=== PATIENT | male | born 1945 | race Caucasian/White ===

== ENCOUNTER → 2018-04-17 | Day surgery (SDC) | payer MEDICARE, BC ==
--- NOTE | 2018-04-17 12:35 | RADIOLOGY REPORT (SQ) ---
EXAM DESCRIPTION: ARTHRO SHOULDER; FLUORO/NEEDLE PLACEMENT COMPLETED DATE/TIME: 04/17/2018 12:21 pm REASON FOR STUDY: UNSPECIFIED FX OF UPPER END OF LEFT HUMERUS, SUB ENCOUNTER S42.202D UNSP FX UPPER END OF L HUMERUS, SUBS FOR FX W ROUTN COMPARISON: None. FLUOROSCOPY TIME: 30 seconds 1 digital radiographic image saved to PACS. LIMITATIONS: None. PROCEDURE: Procedure, risks, benefits and alternatives explained to patient who then gave written c onsent. The anterior left shoulder was marked and a time-out was called for correct marking verificat ion. Anterior entry site marked using fluoroscopic guidance. Patient could not lay prone for arthro gram. Shoulder prepped and draped using sterile technique. Local anesthesia achieved using 7 mL of 1% lidocaine injection. 22 gauge spinal needle introduced into the joint space under direct fluoros copic visualization. Non-ionic contrast instilled to confirm intra-articular position. Dilute gadol inium solution then injected. Needle removed and entry site covered with sterile bandage. No immedi ate complications noted. Healing left humeral head fracture. TECHNIQUE: Digital images acquired during fluoroscopy and stored on PACS. Patient immediately taken to the MR suite for additional imaging. INJECTION LOCATION: Anterior left glenohumeral joint CONTRAST TYPE AND AMOUNT:1 mL of Isovue-300 was injected to confirm intra-articular needle placement. This was followed by injection of 12 mL dilute Prohance/Saline mixture. IMPRESSION: SUCCESSFUL NEEDLE PLACEMENT AND INJECTION FOR LEFT SHOULDER MR ARTHROGRAM USING ANTERIOR APPROACH. COMMENT: Quality ID 145: Final reports for procedures using fluoroscopy that document radiation exp osure indices, or exposure time and number of fluorographic images (if radiation exposure indices are not available) TECHNICAL DOCUMENTATION: JOB ID: [id number] [employer]- All Rights Reserved Reading location - IP/workstation name: [email or web address]
--- NOTE | 2018-04-17 12:35 | RADIOLOGY REPORT (SQ) ---
EXAM DESCRIPTION: ARTHRO SHOULDER; FLUORO/NEEDLE PLACEMENT COMPLETED DATE/TIME: 04/17/2018 12:21 pm REASON FOR STUDY: UNSPECIFIED FX OF UPPER END OF LEFT HUMERUS, SUB ENCOUNTER S42.202D UNSP FX UPPER END OF L HUMERUS, SUBS FOR FX W ROUTN COMPARISON: None. FLUOROSCOPY TIME: 30 seconds 1 digital radiographic image saved to PACS. LIMITATIONS: None. PROCEDURE: Procedure, risks, benefits and alternatives explained to patient who then gave written c onsent. The anterior left shoulder was marked and a time-out was called for correct marking verificat ion. Anterior entry site marked using fluoroscopic guidance. Patient could not lay prone for arthro gram. Shoulder prepped and draped using sterile technique. Local anesthesia achieved using 7 mL of 1% lidocaine injection. 22 gauge spinal needle introduced into the joint space under direct fluoros copic visualization. Non-ionic contrast instilled to confirm intra-articular position. Dilute gadol inium solution then injected. Needle removed and entry site covered with sterile bandage. No immedi ate complications noted. Healing left humeral head fracture. TECHNIQUE: Digital images acquired during fluoroscopy and stored on PACS. Patient immediately taken to the MR suite for additional imaging. INJECTION LOCATION: Anterior left glenohumeral joint CONTRAST TYPE AND AMOUNT:1 mL of Isovue-300 was injected to confirm intra-articular needle placement. This was followed by injection of 12 mL dilute Prohance/Saline mixture. IMPRESSION: SUCCESSFUL NEEDLE PLACEMENT AND INJECTION FOR LEFT SHOULDER MR ARTHROGRAM USING ANTERIOR APPROACH. COMMENT: Quality ID 145: Final reports for procedures using fluoroscopy that document radiation exp osure indices, or exposure time and number of fluorographic images (if radiation exposure indices are not available) TECHNICAL DOCUMENTATION: JOB ID: [id number] [employer]- All Rights Reserved Reading location - IP/workstation name: [email or web address]
--- NOTE | 2018-04-17 15:45 | RADIOLOGY REPORT (SQ) ---
EXAM DESCRIPTION: MRI LT UPPER JOINT WITH COMPLETED DATE/TIME: 04/17/2018 1:30 pm REASON FOR STUDY: UNSPECIFIED FX OF UPPER END OF LEFT HUMERUS, SUB ENCOUNTER S42.202D UNSP FX UPPER END OF L HUMERUS, SUBS FOR FX W ROUTN COMPARISON: None. TECHNIQUE: Left shoulder images acquired and stored on PACS. Oblique coronal, oblique sagittal, and axial imaging to include fat sensitive sequences as T1, water sensitive sequences as FST2/STIR, and c ontrast sensitive sequences as FST1. LIMITATIONS: Susceptibility artifact anterior humeral head. FINDINGS: JOINT DISTENTION: Adequate distention for interpretation. BONE MARROW AND CORTEX: Healed fracture of the surgical neck. AC JOINT: Type 1 acromion. No significant AC joint arthropathy. GLENOHUMERAL JOINT: Mild osteoarthritic changes. ROTATOR CUFF: Evaluation is limited due to the degree of artifact. Cuff musculature is symmetric. C uff appears attenuated and at least partially torn. Subscapularis is intact. LABRUM AND BICEPS LABRAL COMPLEX: Grossly intact. Distal biceps is normal. INFERIOR LABRAL COMPLEX: Intact. ADJACENT SOFT TISSUES: No masses or nodes. OTHER: No other significant finding. IMPRESSION: 1. Technical limitations due to metal artifact. 2. At least partial thickness tears of the supraspinatus and infraspinatus. 3. Mild glenohumeral joint arthropathy. 4. Healed surgical neck fracture. TECHNICAL DOCUMENTATION: JOB ID: [id number] [employer]- All Rights Reserved Reading location - IP/workstation name: [email or web address]
== END ==
LOC: RAD 11:16
PROVIDERS: ATTEND Physician Assistant
DX: S42.202D Unspecified fracture of upper end of left humerus, subsequent encounter for fracture with routine healing (principal); X58.XXXD Exposure to other specified factors, subsequent encounter; M75.112 Incomplete rotator cuff tear or rupture of left shoulder, not specified as traumatic; M19.012 Primary osteoarthritis, left shoulder
CPT/HCPCS: 73222; 73040; 77002; A9576